=== PATIENT | female | born 1990 | race African-American/Black ===

== ENCOUNTER 2018-05-19 08:31 | Emergency (ER) | payer SELFPAY ==
--- NOTE | 2018-05-19 09:38 | ER Document Report ---
HPI - HPI Time Seen by Provider: 05/19/18 09:26 Pain Level: 1 Notes: Patient is a 27-year-old female with no significant past medical history presents the emergency department complaining of urinary burning, urgency, and frequency over the last couple days. Patient states that she has had a UTI in the past. She is still eating and drinking without difficulty. She is having normal bowel movements. Her last menstrual cycle was about 1 week ago. She has not had any other vaginal discharge, odor, or bleeding. She has no other concerns or complaints. No concern of STD or STI. Denies any headache, fever, URI, sore throat, chest pain, palpitations, syncope, cough, shortness of breath, wheeze, dyspnea, abdominal pain, nausea/vomiting/diarrhea, or rash. - ROS Systems Reviewed and Negative: Yes All other systems reviewed and negative - CONSTITUTIONAL Constitutional: DENIES: Fever, Chills - EENT EENT: DENIES: Sore Throat, Ear Pain, Eye problems - NEURO Neurology: DENIES: Headache, Weakness, Vision blurred, Dizzinesss / Vertigo - CARDIOVASCULAR Cardiovascular: DENIES: Chest pain - RESPIRATORY Respiratory: DENIES: Trouble Breathing, Coughing - GASTROINTESTINAL Gastrointestinal: DENIES: Abdominal Pain, Black / Bloody Stools - URINARY Urinary: REPORTS: Dysuria. DENIES: Urgency, Frequency - REPRODUCTIVE Reproductive: DENIES: : - MUSCULOSKELETAL Musculoskeletal: DENIES: Extremity pain Past Medical History - Social History Smoking Status: Current Every Day Smoker Chew tobacco use (# tins/day): No Frequency of alcohol use: None Drug Abuse: None Family History: Reviewed & Not Pertinent Patient has suicidal ideation: No Patient has homicidal ideation: No Renal/ Medical History: Denies: Hx Peritoneal Dialysis Vertical Provider Document - CONSTITUTIONAL Agree With Documented VS: Yes Notes: PHYSICAL EXAMINATION: GENERAL: Well-appearing, well-nourished and in no acute distress. LUNGS: Breath sounds clear to auscultation bilaterally and equal. No wheezes rales or rhonchi. HEART: Regular rate and rhythm without murmurs, rubs, gallops. ABDOMEN: Soft, nontender, nondistended abdomen. No guarding, no rebound. No masses appreciated. Normal bowel sounds present. No CVA tenderness bilaterally. Musculoskeletal: FROM to passive/active. Strength 5+/5. Extremities: No cyanosis, clubbing, or edema b/l. Peripheral pulses 2+. Capillary refill less than 3 seconds. NEUROLOGICAL: Normal speech, normal gait. PSYCH: Normal mood, normal affect. SKIN: Warm, Dry, normal turgor, no rashes or lesions noted. - INFECTION CONTROL TRAVEL OUTSIDE OF THE [place] IN LAST 30 DAYS: No Course - Re-evaluation Re-evalutation: 05/19/18 10:37 Patient is an afebrile, well-hydrated, 27-year-old female who presents emergency department with dysuria and possible UTI. Vitals are acceptable without significant tachycardia, tachypnea, or hypoxia. PE is otherwise unremarkable. Her abdomen is soft and nontender. Urinalysis does have some contaminant, but patient is symptomatic so we will begin treatment. Urine culture is pending. No other labs or imaging warranted. She is nontoxic-appearing and is tolerating p.o. without difficulty. Low suspicion for any sepsis, meningitis, severe dehydration, respiratory compromise, acute abdomen, or other systemic emergent condition at this time. Patient is aware that condition can change from initial presentation and she needs to monitor symptoms closely and seek medical attention with any acute changes. I will send her home with a prescription for Keflex. Conservative measures otherwise. Recheck with your PCM this week. Return to the ED if needed otherwise as reviewed. Patient is in agreement. Discharge - Discharge Clinical Impression: Acute UTI (urinary tract infection), Dysuria Condition: Stable Disposition: HOME, SELF-CARE Instructions: Cephalexin ([facility]), Urinary Tract Infection ([facility]) Additional Instructions: Push fluids (i.e. water, cranberry juice) Proper hygenic technique Keep the skin clean Tylenol/ibuprofen as needed May use over the counter AZO for burning with urination x2-3 days Take medications as directed F/u with your PCM in 3-5 days for a recheck Consider consult with a Urologist for ongoing/worsening symptoms. Return to the ED with any worsening symptoms and/or development of fever, headache, chest pain, palpitations, syncope, shortness of breath, trouble breathing, abdominal pain, n/v/d, blood in stool/urine, loss of control of bowel/bladder, urinary retention, or other worsening symptoms that are concerning to you. Prescriptions: Cephalexin Monohydrate [Keflex 500 mg Capsule] 500 mg PO TID #21 capsule Forms: Elevated Blood Pressure Referrals: [facility] [Provider Group] - Follow up as needed
[2018-05-19 10:30] LABS: APPEARANCE,URINE SLIGHTLY-CLOUDY; BILIRUBIN,URINE NEGATIVE (NEGATIVE); COLOR,URINE YELLOW; GLUCOSE, URINE NEGATIVE (NEGATIVE); KETONES,URINE 20 mg/dL (NEGATIVE); LEUKOCYTE ESTERASE,URINE LARGE (NEGATIVE); NITRITE,URINE NEGATIVE (NEGATIVE); PROTEIN,URINE NEGATIVE (NEGATIVE); URINE SPECIFIC GRAVITY 1.017; UROBILINOGEN,URINE NEGATIVE mg/dL (<2.0)
[2018-05-19 10:39] VITALS: BP 129/83
== END 2018-05-19 10:49 | disposition home or self-care (01) ==
LOC: ER 08:31
DX: N39.0 Urinary tract infection, site not specified (principal); R30.0 Dysuria; R30.9 Painful micturition, unspecified; R39.15 Urgency of urination; R35.0 Frequency of micturition; F17.200 Nicotine dependence, unspecified, uncomplicated
CPT/HCPCS: 81001; 81025; 87086; 87088; 99283

== ENCOUNTER 2019-06-04 15:07 | Emergency (ER) | payer SELFPAY ==
--- NOTE | 2019-06-04 15:34 | ER Document Report ---
ED Medical Screen (RME) - General Chief Complaint: Abdominal Pain Stated Complaint: LOWER ABDOMINAL PAIN Time Seen by Provider: 06/04/19 15:30 TRAVEL OUTSIDE OF THE [place] IN LAST 30 DAYS: No - HPI Notes: 06/04/19 15:33 Patient is a 28-year-old female with history of tubal ligation who presents complaining of lower pelvic pain that is been present since yesterday that is been intermittent and feels like cramping. She has not had any vaginal discharge, odor, or bleeding. No dysuria or trouble with her bowels. No fever, chest pain, nausea/vomiting. I have treated and performed a rapid initial assessment of this patient. A comprehensive ED assessment and evaluation of the patient, analysis of test results and completion of medical decision making process will be conducted by additional ED providers. PHYSICAL EXAMINATION: GENERAL: Well-appearing, well-nourished and in no acute distress. A&Ox4. Answers questions appropriately. Abdomen: Limited exam in triage, there is tenderness to her lower pelvic area. - Related Data Allergies/Adverse Reactions: No Known Allergies Allergy (Unverified 05/19/18 08:33) Past Medical History Renal/ Medical History: Denies: Hx Peritoneal Dialysis Physical Exam - Vital signs Vitals: Temp Pulse Resp BP Pulse Ox 98.7 F 78 20 130/75 H 98 06/04/19 15:06/04/19 15:25 06/04/19 15:25 06/04/19 15:25 06/04/19 15:25 Course - Vital Signs Vital signs: Temp Pulse Resp BP Pulse Ox 98.7 F 78 20 130/75 H 98 06/04/19 15:06/04/19 15:25 06/04/19 15:25 06/04/19 15:25 06/04/19 15:25
[2019-06-04 16:12] LABS: APPEARANCE,URINE CLEAR; BILIRUBIN,URINE NEGATIVE (NEGATIVE); COLOR,URINE YELLOW; GLUCOSE, URINE NEGATIVE (NEGATIVE); KETONES,URINE NEGATIVE (NEGATIVE); PROTEIN,URINE NEGATIVE (NEGATIVE); URINE SPECIFIC GRAVITY 1.014; UROBILINOGEN,URINE NEGATIVE mg/dL (<2.0)
[2019-06-04 16:40] LABS: ABSOLUTE LYMPHOCYTES (AUTO) 2.5 10^3/uL (0.5-4.7); ABSOLUTE MONOCYTES (AUTO) 0.5 10^3/uL (0.1-1.4); ABSOLUTE NEUT (AUTO) 5.5 10^3/uL (1.7-8.2); BASOPHILS % (AUTO) 0.3 % (0-2); EOSINOPHILS % (AUTO) 0.5 % (0-6); HEMATOCRIT 35.8 % (36.0-47.0); HEMOGLOBIN 12.3 g/dL (12.0-15.5); LYMPHOCYTES % (AUTO) 29.4 % (13-45); MEAN CORPUSCULAR HEMOGLOBIN 26.8 pg (27.0-33.4); MEAN CORPUSCULAR HGB CONC 34.4 g/dL (32.0-36.0); MEAN CORPUSCULAR VOLUME 78 fl (80-97); MONOCYTES % (AUTO) 6.1 % (3-13); PLATELET COUNT 249 10^3/uL (150-450); RED BLOOD COUNT 4.59 10^6/uL (3.72-5.28); RED CELL DISTRIBUTION WIDTH 16.4 % (11.5-14.0); SEGMENTED NEUTROPHILS % (AUTO) 63.7 % (42-78); TOTAL CELLS COUNTED % (AUTO) 100 %; WHITE BLOOD COUNT 8.6 10^3/uL (4.0-10.5)
[2019-06-04 16:48] LABS: ALBUMIN 4.4 g/dL (3.5-5.0); ALKALINE PHOSPHATASE 56 U/L (38-126); ANION GAP 6 (5-19); ASPARTATE AMINO TRANSFERASE 18 U/L (14-36); BILIRUBIN,TOTAL 0.5 mg/dL (0.2-1.3); BLOOD UREA NITROGEN 15 mg/dL (7-20); CALCIUM 9.8 mg/dL (8.4-10.2); CARBON DIOXIDE 26 mmol/L (22-30); CHLORIDE 108 mmol/L (98-107); GLUCOSE 93 mg/dL (75-110); TOTAL PROTEIN 7.5 g/dL (6.3-8.2)
--- NOTE | 2019-06-04 17:08 | RADIOLOGY REPORT (SQ) ---
EXAM DESCRIPTION: U/S NON OB PEL TV W/DOPPLER COMPLETED DATE/TIME: 06/04/2019 4:41 pm REASON FOR STUDY: pelvic pain COMPARISON: None. TECHNIQUE: Dynamic and static grayscale images acquired of the pelvis via transvaginal approach and recorded on PACS. Additional selected color Doppler and spectral images recorded. LIMITATIONS: None. FINDINGS: UTERUS: The uterus is oriented retroverted and it measures 8.3 x 6 x 7.2 cm. The echotext ure of the myometrium is homogeneous. ENDOMETRIAL STRIPE: The endometrium measures 17 mm in thickness. CERVIX: The cervix measures 2.8 cm in length. RIGHT OVARY AND DOPPLER: The right ovary measures 3.3 x 2.2 x 2.2 cm and on Doppler there is intact a rterial inflow and venous outflow within the ovarian stroma. There is no adnexal mass. LEFT OVARY AND DOPPLER: The left ovary measures 3.1 x 2.6 x 2.9 cm and on Doppler there is intact art erial inflow and venous outflow within the ovarian stroma. There is no adnexal mass. FREE FLUID: Trace amount of free fluid in the cul de sac. OTHER: No other finding. IMPRESSION: 1. Normal appearance of the uterus, endometrium and ovaries. There is no adnexal mass o r evidence for ovarian torsion. 2. Trace amount of free fluid in the pelvis. TECHNICAL DOCUMENTATION: JOB ID: [id number] 2010 [employer]- All Rights Reserved Rev-08/23 Reading location - IP/workstation name: [email or web address]
[2019-06-04] MEDS ORDERED: FLUCONAZOLE 100 MG TABLET PO ONE (18:56)
--- NOTE | 2019-06-04 19:01 | ER Document Report ---
ED General - General Chief Complaint: Lower Abdominal Pain Stated Complaint: LOWER ABDOMINAL PAIN Time Seen by Provider: 06/04/19 15:30 Mode of Arrival: Ambulatory Information source: Patient Notes: 28-year-old female presents emergency department with complaints of lower abdominal pain vaginal discharge since yesterday. She reports she usually has white vaginal discharge prior to her her menses but this discharge is heavier. Denies odor. Denies pain with void. Denies fever vomiting diarrhea. Reports she is not sexually active. She is not worried about an STD. She reports she is eating drinking voiding bowel movement is normal. TRAVEL OUTSIDE OF THE [place] IN LAST 30 DAYS: No - HPI Onset: Yesterday Onset/Duration: Sudden Quality of pain: Achy Associated symptoms: None Exacerbated by: Denies Relieved by: Denies Similar symptoms previously: No Recently seen / treated by doctor: No - Related Data Allergies/Adverse Reactions: No Known Allergies Allergy (Unverified 05/19/18 08:33) Past Medical History - General Information source: Patient Last Menstrual Period: Last month. 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 Lives with: Family Family History: Reviewed & Not Pertinent Patient has suicidal ideation: No Patient has homicidal ideation: No - Medical History Medical History: Negative Renal/ Medical History: Denies: Hx Peritoneal Dialysis Past Surgical History: Reports: Hx Tubal Ligation Review of Systems - Review of Systems Notes: Review HPI for review of systems., All other systems negative Physical Exam - Vital signs Vitals: Temp Pulse Resp BP Pulse Ox 98.7 F 78 20 130/75 H 98 06/04/19 15:25 06/04/19 15:25 06/04/19 15:25 06/04/19 15:25 06/04/19 15:25 - Notes Notes: PHYSICAL EXAMINATION: GENERAL: Well-appearing and in no acute distress HEAD: Atraumatic, normocephalic. EYES: Pupils equal round extraocular movements intact, sclera anicteric, conjunctiva are normal. ENT: nares patent,. Moist mucous membranes. NECK: Normal range of motion, supple without lymphadenopathy LUNGS: CTAB and equal. No wheezes rales or rhonchi. HEART: Regular rate and rhythm without murmurs ABDOMEN: Soft, no tenderness. No guarding, no rebound Back: Denies pain EXTREMITIES: Normal range of motion, no pitting edema. No cyanosis. NEUROLOGICAL: Cranial nerves grossly intact. Normal sensory/motor exams. PSYCH: Normal mood, normal affect. SKIN: Warm, Dry, normal turgor, no rashes or lesions noted Course - Re-evaluation Re-evalutation: 06/04/19 19:49 Patient presents with complaints of large amount of vaginal discharge. Reports itchiness. She also reports she is not sexually active not worried about STD patch. Pelvic was done vaginal culture for BV wet mount and STD cultures were obtained. Patient would like to be treated for the yeast infection and contacted should anything come back positive. She was provided with the culture nurse number and my number that I will be sitting at tomorrow. She was treated with Diflucan today. She verbalized understanding to all instructions. Transvaginal US 06/04/19 15:32 IMPRESSION: 1. Normal appearance of the uterus, endometrium and ovaries. There is no adnexal mass or evidence for ovarian torsion. 2. Trace amount of free fluid in the pelvis. Laboratory 06/04/19 06/04/19 06/04/19 15:40 15:40 15:40 WBC 8.6 RBC 4.59 Hgb 12.3 Hct 35.8 L MCV 78 L MCH 26.8 L MCHC 34.4 RDW 16.4 H Plt Count 249 Lymph % (Auto) 29.4 [place] % (Auto) 6.1 Eos % (Auto) 0.5 Baso % (Auto) 0.3 Absolute Neuts (auto) 5.5 Absolute Lymphs (auto) 2.5 Absolute Monos (auto) 0.5 Absolute Eos (auto) 0.0 Absolute Basos (auto) 0.0 Seg Neutrophils % 63.7 Sodium 140.2 Potassium 4.0 Chloride 108 H Carbon Dioxide 26 Anion Gap 6 BUN 15 Creatinine 0.89 Est GFR ( Amer) > 60 Est GFR (MDRD) Non-Af > 60 Glucose 93 Calcium 9.8 Total Bilirubin 0.5 Direct Bilirubin 0.0 Neonat Total Bilirubin Not Reportable Neonat Direct Bilirubin Not Reportable Neonat Indirect Bili Not Reportable AST 18 ALT 8 Alkaline Phosphatase 56 Total Protein 7.5 Albumin 4.4 Lipase 62.0 Serum HCG, Qual Urine Color YELLOW Urine Appearance CLEAR Urine pH 6.0 Ur Specific [place] 1.014 Urine Protein NEGATIVE Urine Glucose (UA) NEGATIVE Urine Ketones NEGATIVE Urine Blood NEGATIVE Urine Nitrite (Reflex) NEGATIVE Urine Bilirubin NEGATIVE Urine Urobilinogen NEGATIVE Leukocyte Esterase Rfl TRACE H Urine RBC (Auto) 1 Urine WBC (Reflex) 2 Squamous Epi Cells Auto 1 Urine Mucus (Auto) RARE Urine Ascorbic Acid NEGATIVE Bacteria (Wet Prep) Trichomonas (Wet Prep) Vaginal WBC Vaginal Yeast 06/04/19 06/04/19 15:40 19:16 WBC RBC Hgb Hct MCV MCH MCHC RDW Plt Count Lymph % (Auto) [place] % (Auto) Eos % (Auto) Baso % (Auto) Absolute Neuts (auto) Absolute Lymphs (auto) Absolute Monos (auto) Absolute Eos (auto) Absolute Basos (auto) Seg Neutrophils % Sodium Potassium Chloride Carbon Dioxide Anion Gap BUN Creatinine Est GFR ( Amer) Est GFR (MDRD) Non-Af Glucose Calcium Total Bilirubin Direct Bilirubin Neonat Total Bilirubin Neonat Direct Bilirubin Neonat Indirect Bili AST ALT Alkaline Phosphatase Total Protein Albumin Lipase Serum HCG, Qual NEGATIVE Urine Color Urine Appearance Urine pH Ur Specific [place] Urine Protein Urine Glucose (UA) Urine Ketones Urine Blood Urine Nitrite (Reflex) Urine Bilirubin Urine Urobilinogen Leukocyte Esterase Rfl Urine RBC (Auto) Urine WBC (Reflex) Squamous Epi Cells Auto Urine Mucus (Auto) Urine Ascorbic Acid Bacteria (Wet Prep) 4+ BACTERIA SEEN Trichomonas (Wet Prep) NO TRICHOMONAS SEEN Vaginal WBC 2+ WBCS SEEN Vaginal Yeast BUDDING YEAST SEEN 06/05/19 19:17 Patient positive for chlamydia. She was contacted by the culture nurse and a prescription was called to her pharmacy. - Vital Signs Vital signs: Temp Pulse Resp BP Pulse Ox 97.8 F 72 17 134/92 H 99 06/04/19 19:34 06/04/19 19:34 06/04/19 19:34 06/04/19 19:34 06/04/19 19:34 - Laboratory Result Diagrams: 06/04/19 15:40 06/04/19 15:40 Laboratory results interpreted by me: 06/04/19 06/04/19 06/04/19 15:40 15:40 15:40 Hct 35.8 L MCV 78 L MCH 26.8 L RDW 16.4 H Chloride 108 H Leukocyte Esterase Rfl TRACE H Chlamydia DNA (PCR) 02/27/20 19:16 Hct MCV MCH RDW Chloride Leukocyte Esterase Rfl Chlamydia DNA (PCR) DETECTED H - Diagnostic Test Radiology reviewed: Reports reviewed Procedures - Pelvic Exam Pelvic exam Cultures obtained: Yes Wet prep obtained: Yes Herpes culture obtained: No POC sent to lab: No Foreign body removed: No Bimanual exam performed: Yes Witnessed by: Monica IRAHETA Discharge - Discharge Clinical Impression: Lower abdominal pain, Vaginal discharge Condition: Stable Disposition: HOME, SELF-CARE Instructions: Abdominal Pain ([facility]), Fluconazole ([facility]), [facility], Vaginal Yeast Infection ([facility]) Additional Instructions: *You have been evaluated for abdominal pain, vaginal discharge, yeast infection *You have been treated for vaginal yeast infection with Diflucan. *Your vaginal culture and STD cultures are pending. You may contact Pat tomorrow at [phone] for your results. Or you may contact the culture nurse Saturday through Saturday 8 AM to 4 PM at [phone] *Follow up with a primary care provider or the health department within 1 week for recheck *Return to ED for worsening condition, changes, needs Monitor your blood pressure. Your blood pressure was elevated today. This may be because you were anxious, in pain or because you need medication. It is important to follow up with your primary care provider for full evaluation. Prescriptions: Fluconazole [Diflucan 100 Mg Tablet] 150 mg PO DAILY #1 tablet Forms: Elevated Blood Pressure
[2019-06-04 19:35] VITALS: BP 134/92
[2019-06-04 19:47] LABS: BACTERIA (WET MOUNT) 4+ BACTERIA SEEN; T.VAGINALIS (WET MOUNT) NO TRICHOMONAS SEEN; WBCS (WET MOUNT) 2+ WBCS SEEN; YEAST (WET MOUNT) BUDDING YEAST SEEN
[2019-06-04 21:04] LABS: CHLAM PCR DETECTED (NOT DETECT)
== END 2019-06-04 19:42 | disposition home or self-care (01) ==
LOC: ER 15:07
DX: R10.2 Pelvic and perineal pain (principal); N89.8 Other specified noninflammatory disorders of vagina; A74.9 Chlamydial infection, unspecified; B37.9 Candidiasis, unspecified
CPT/HCPCS: 36415; 76830; 80053; 81001; 83690; 84703; 85025; 87070; 87077; 87086; 87205; 87210; 87491; 87591; 93976; 99284

== ENCOUNTER 2019-09-03 23:50 | Emergency (ER) | payer SELFPAY ==
[2019-09-04 01:26] VITALS: BP 129/85
== END 2019-09-04 01:25 | disposition left against medical advice (07) ==
LOC: ER 23:50
DX: Z53.21 Procedure and treatment not carried out due to patient leaving prior to being seen by health care provider (principal)

== ENCOUNTER 2019-09-18 20:22 | Emergency (ER) | payer SELFPAY ==
--- NOTE | 2019-09-18 22:27 | ER Document Report ---
ED General - General Chief Complaint: Lower Abdominal Pain Stated Complaint: ABDOMINAL PAIN Time Seen by Provider: 09/18/19 21:34 TRAVEL OUTSIDE OF THE [place] IN LAST 30 DAYS: No - HPI Notes: Chief complaint: Vaginal discharge History of present illness: 28-year-old female 5 para 4 AB 1 status post tubal ligation with last menses 2 weeks ago was previously seen here June 04 with complaint of vaginal discharge and tested positive for chlamydia then with negative studies for GC and a negative wet mount. She says she was given antibiotic treatment and completed this but notes that her vaginal discharge never went away. I have reviewed records she was treated only with fluconazole at that time and did not get any treatment for chlamydia. Currently she denies pain. She denies fever or chills. She denies dysuria. She denies nausea vomiting. - Related Data Allergies/Adverse Reactions: No Known Allergies Allergy (Unverified 05/19/18 08:33) Past Medical History - General Information source: Patient, [facility] Records - Social History Smoking Status: Current Some Day Smoker Chew tobacco use (# tins/day): No Frequency of alcohol use: None Drug Abuse: None Family History: Reviewed & Not Pertinent Patient has homicidal ideation: No Renal/ Medical History: Denies: Hx Peritoneal Dialysis Past Surgical History: Reports: Hx Tubal Ligation Review of Systems - Review of Systems Notes: Constitutional: Negative for fever. HENT: Negative for sore throat. Eyes: Negative for visual changes. Cardiovascular: Negative for chest pain. Respiratory: Negative for shortness of breath. Gastrointestinal: Negative for abdominal pain, vomiting or diarrhea. Genitourinary: As per HPI. Musculoskeletal: Negative for back pain. Skin: Negative for rash. Neurological: Negative for headaches, weakness or numbness. 10 point ROS negative except as marked above and in HPI. Physical Exam - Vital signs Vitals: Temp Pulse Resp BP Pulse Ox 98.4 F 90 16 134/72 H 99 09/18/19 20:34 09/18/19 20:34 09/18/19 20:34 09/18/19 20:34 09/18/19 20:34 - Notes Notes: GENERAL: Female patient of approximately stated age appearing in no acute distress. SKIN: Good turgor no rashes. HEAD: Normocephalic atraumatic. EYES: PERRLA. EOMI. Conjunctivae and sclerae clear. NECK: Supple. No masses or thyromegaly. No adenopathy. Carotids 2+ without bruits. No JVD. BACK: Symmetrical without tenderness. CHEST: Respirations unlabored. Breath sounds clear and symmetrical. HEART: Regular rhythm. No murmur gallop or rub. ABDOMEN: Soft nontender without masses, organomegaly or rebound. Bowel sounds normally active. No bruits. Pelvic: Normal external genitalia and hair distribution. Scant white vaginal discharge present. This is thin and watery. Cervix is parous without lesions. Bimanual exam shows no uterine enlargement or adnexal masses. There is no tenderness on bimanual exam and no cervical motion tenderness. EXTREMITIES: No edema. No calf tenderness. Cap refill less than 1.5 seconds. Dorsalis pedis and posterior tibial pulses 3+ and symmetrical. NEUROLOGICAL: Alert and oriented x3. Nonfocal. PSYCHIATRIC: Appropriate affect. Course - Re-evaluation Re-evalutation: 09/18/19 23:38 This is basically a lady who already had documented chlamydia in May but never received adequate treatment. I am going to treat her with a 14-day course of doxycycline and I have resubmitted a DNA probe. She is to follow-up with the health department or [facility]. - Vital Signs Vital signs: Temp Pulse Resp BP Pulse Ox 98.4 F 90 16 134/72 H 99 09/18/19 21:34 09/18/19 20:34 09/18/19 20:34 09/18/19 20:34 09/18/19 20:34 - Laboratory Laboratory results interpreted by me: 09/18/19 22:03 Urine Urobilinogen 2.0 H Ur Leukocyte Esterase SMALL H Discharge - Discharge Clinical Impression: Chlamydial cervicitis Condition: Stable Disposition: HOME, SELF-CARE Additional Instructions: Chlamydia You have a chlamydia infection. Chlamydia is a germ that grows inside the cells of the mucous membranes. It often infects the eyes, urethra, and fallopian tubes. It can cause chronic pain and scar tissue if untreated. Antibiotics are used to treat chlamydia. It's important to take all the medicine even if there are no symptoms. Use condoms to prevent spread of the infection. Because this infection can spread by sexual contact, it's important that your sexual partner be checked before resuming sexual relations. A positive test for chlamydia has to be reported to the health department. Call the doctor or return at once if you develop increasing fever, rash, severe pelvic pain, vaginal bleeding (other than your period), or problems with your bladder or bowels. Take prescribed medication as instructed. Recommend that your partner be evaluated for possible chlamydial infection. Follow-up with health department clinic or [facility] Prescriptions: Doxycycline Monohydrate 100 mg PO BID 14 Days #28 capsule Referrals: [facility] [Provider Group] - Follow up as needed
[2019-09-18 22:41] LABS: APPEARANCE,URINE SLIGHTLY-CLOUDY; BILIRUBIN,URINE NEGATIVE (NEGATIVE); COLOR,URINE YELLOW; GLUCOSE, URINE NEGATIVE (NEGATIVE); KETONES,URINE NEGATIVE (NEGATIVE); LEUKOCYTE ESTERASE,URINE SMALL (NEGATIVE); NITRITE,URINE NEGATIVE (NEGATIVE); PROTEIN,URINE NEGATIVE (NEGATIVE); URINE SPECIFIC GRAVITY 1.016
[2019-09-18] MEDS ORDERED: DOXYCYCLINE HYCLATE 100 MG TABLET PO ONE (23:31)
[2019-09-18] MEDS ORDERED: METRONIDAZOLE 500 MG TABLET PO ONE (23:31)
[2019-09-18 23:42] LABS: RBCS (WET MOUNT) FEW RBCS SEEN; T.VAGINALIS (WET MOUNT) NO TRICHOMONAS SEEN; WBCS (WET MOUNT) FEW WBCS SEEN; YEAST (WET MOUNT) NO YEAST SEEN
[2019-09-18 23:48] VITALS: BP 128/90
[2019-09-18 23:56] LABS: CHLAM PCR NOT DETECTED (NOT DETECT)
== END 2019-09-18 23:58 | disposition home or self-care (01) ==
LOC: ER 20:22
DX: A56.09 Other chlamydial infection of lower genitourinary tract (principal); R10.30 Lower abdominal pain, unspecified; F17.200 Nicotine dependence, unspecified, uncomplicated; Z98.51 Tubal ligation status
CPT/HCPCS: 81001; 87210; 87491; 87591; 99284

== ENCOUNTER 2019-09-29 13:01 | Emergency (ER) | payer SELFPAY ==
[2019-09-29] MEDS ORDERED: RINGERS SOLUTION,LACTATED 1,000 ML IV ONE (14:15)
[2019-09-29] MEDS ORDERED: METOCLOPRAMIDE HCL INJ/PF 10 MG/2 ML SDV IV ONE (14:15)
--- NOTE | 2019-09-29 14:16 | ER Document Report ---
ED Flu Like - General Chief Complaint: Cold Symptoms Stated Complaint: FLU SYMPTOMS Time Seen by Provider: 09/29/19 13:44 Primary Care Provider: ANH IRBY MD [ACTIVE STAFF] - Follow up in 3-5 days (Call for an appointment if not improving in 2 to 3 days.) Mode of Arrival: Ambulatory Information source: Patient Notes: 28-year-old female with no previous medical problems presents emergency room complaining of chills, nausea, vomiting for the past 3 days. Denies any abdominal pain. No diarrhea. Patient did recently travel to [facility] 2 days ago. Denies any COVID-19 exposure. Denies any ill contacts. Denies any bad food. Has not been taking any medications for her symptoms. TRAVEL OUTSIDE OF THE [place] IN LAST 30 DAYS: No - Related Data Allergies/Adverse Reactions: No Known Allergies Allergy (Unverified 05/19/18 08:33) Past Medical History - General Information source: Patient - Social History Smoking Status: Never Smoker Frequency of alcohol use: None Drug Abuse: None Family History: Reviewed & Not Pertinent Patient has homicidal ideation: No Renal/ Medical History: Denies: Hx Peritoneal Dialysis Past Surgical History: Reports: Hx Tubal Ligation Review of Systems - Review of Systems Constitutional: Chills, Malaise EENT: No symptoms reported Cardiovascular: No symptoms reported Respiratory: No symptoms reported Gastrointestinal: Nausea, Vomiting. denies: Abdominal pain, Diarrhea Genitourinary: No symptoms reported Musculoskeletal: Muscle pain Skin: No symptoms reported -: Yes All other systems reviewed and negative Physical Exam - Vital signs Vitals: Temp Pulse Resp BP Pulse Ox 98.5 F 80 18 117/63 98 09/29/19 13:22 09/29/19 13:22 09/29/19 13:22 09/29/19 13:22 09/29/19 13:22 - Notes Notes: VITAL SIGNS: Within normal limits. GENERAL: Mild acute distress, non-toxic appearance. HEAD: Normal with no signs of head trauma. EYES: PERRLA, EOMI, conjunctiva normal, no discharge. EARS: Hearing grossly intact. NOSE: Normal. THROAT: Oropharynx is normal. NECK: Normal range of motion, no tenderness, supple, no lymphadenopathy, No adenopathy, no JVD. CHEST: Clear breath sounds bilaterally. No wheezes, rales, or rhonchi. CARDIAC: Regular rate and rhythm. S1 and S2, without murmurs, gallops, or rubs. VASCULAR: No Edema. Peripheral pulses normal and equal in all extremities. ABDOMEN: Normal and soft with no tenderness, no masses or pulsatile masses. GASTROINTESTINAL: Bowel sounds normal GENITOURINARY: Normal, No tenderness LYMPATHTIC: No lymphadenopathy noted. MUSCULOSKELETAL: Good range of motion of all major joints. Extremities without clubbing, cyanosis or edema. NEUROLOGICAL: Alert and oriented x 3. No focal sensory or strength deficits. Speech normal. Follows commands appropriately. PSYCHIATRIC: Normal Affect, judgement and mood. SKIN: Normal appearance with no rashes or lesions. Course - Re-evaluation Re-evalutation: 09/29/19 17:24 Patient is resting comfortably states she is feeling better. Patient would like to be tested for COVID as she recently traveled to [place]. Aware that she will have to self quarantine for the next 14 days until she gets a negative test result back. Will attempt p.o. challenge and discharge patient home. 09/29/19 18:15 Patient remains afebrile, nontoxic-appearing, able to tolerate p.o. fluids. Aware she will be notified and 6 to 8 days of her COVID 19 results. She was counseled on need to self quarantine until she gets her test results back. Take Zofran as needed. Patient was given strict return to the emergency room guidelines. Return for any new or worsening symptoms. All questions were answered. Patient verbalized understanding and agrees with plan of care. - Vital Signs Vital signs: Temp Pulse Resp BP Pulse Ox 98.6 F 72 15 115/72 99 09/29/19 18:34 09/29/19 18:34 09/29/19 18:34 09/29/19 18:34 09/29/19 18:34 - Laboratory Result Diagrams: 09/29/19 14:50 09/29/19 14:50 Laboratory results interpreted by me: 09/29/19 09/29/19 09/29/19 14:50 14:50 15:30 MCV 78 L MCH 26.2 L RDW 15.6 H Chloride 109 H Ur Leukocyte Esterase TRACE H Discharge - Discharge Clinical Impression: Nausea and vomiting Qualifiers: Vomiting type: unspecified Vomiting Intractability: non-intractable Qualified Code(s): R11.2 - Nausea with vomiting, unspecified Condition: Stable Disposition: HOME, SELF-CARE Instructions: COVID-19 Guidance for Persons Under Investigation, Antinausea Medication ([facility]), Vomiting ([facility]) Additional Instructions: You have been seen in the Emergency Department (ED) today for nausea and vomiting. Your work up today has not shown a clear cause for your symptoms. You have been prescribed Zofran; please use as prescribed as needed for your nausea. Follow up with your doctor as soon as possible regarding today's emergent visit and your symptoms of nausea. You will be notified within 6 to 8 days of your COVID-19 results. You need to self quarantine for the next 14 days or until you receive a negative test result. Return to the Emergency Department (ED) if you develop abdominal pain, bloody vomiting, bloody diarrhea, if you are unable to tolerate fluids due to vomiting, or if you develop other symptoms that concern you. Prescriptions: Ondansetron [Zofran Odt 4 mg Tablet] 1 tab PO Q4H PRN #15 tab.rapdis PRN Reason: For Nausea/Vomiting Forms: Return to Work Referrals: ANH IRBY MD [ACTIVE STAFF] - Follow up in 3-5 days (Call for an appointment if not improving in 2 to 3 days.)
[2019-09-29 15:09] LABS: ABSOLUTE LYMPHOCYTES (AUTO) 1.9 10^3/uL (0.5-4.7); ABSOLUTE MONOCYTES (AUTO) 0.4 10^3/uL (0.1-1.4); ABSOLUTE NEUT (AUTO) 5.1 10^3/uL (1.7-8.2); BASOPHILS % (AUTO) 0.3 % (0-2); EOSINOPHILS % (AUTO) 0.6 % (0-6); HEMATOCRIT 36.3 % (36.0-47.0); HEMOGLOBIN 12.2 g/dL (12.0-15.5); LYMPHOCYTES % (AUTO) 25.2 % (13-45); MEAN CORPUSCULAR HEMOGLOBIN 26.2 pg (27.0-33.4); MEAN CORPUSCULAR HGB CONC 33.7 g/dL (32.0-36.0); MEAN CORPUSCULAR VOLUME 78 fl (80-97); PLATELET COUNT 256 10^3/uL (150-450); RED BLOOD COUNT 4.66 10^6/uL (3.72-5.28); RED CELL DISTRIBUTION WIDTH 15.6 % (11.5-14.0); SEGMENTED NEUTROPHILS % (AUTO) 67.9 % (42-78); TOTAL CELLS COUNTED % (AUTO) 100 %; WHITE BLOOD COUNT 7.5 10^3/uL (4.0-10.5)
[2019-09-29 15:28] LABS: A TYPE INFLUENZA AG NEGATIVE (NEGATIVE); B INFLUENZA AG NEGATIVE (NEGATIVE)
[2019-09-29 15:29] LABS: ALBUMIN 3.9 g/dL (3.5-5.0); ALKALINE PHOSPHATASE 58 U/L (38-126); ANION GAP 6 (5-19); ASPARTATE AMINO TRANSFERASE 19 U/L (14-36); BILIRUBIN,TOTAL 0.5 mg/dL (0.2-1.3); BLOOD UREA NITROGEN 18 mg/dL (7-20); CARBON DIOXIDE 25 mmol/L (22-30); CHLORIDE 109 mmol/L (98-107); GLUCOSE 90 mg/dL (75-110); POTASSIUM 3.9 mmol/L (3.6-5.0); TOTAL PROTEIN 7.5 g/dL (6.3-8.2)
[2019-09-29 15:50] LABS: APPEARANCE,URINE CLEAR; BILIRUBIN,URINE NEGATIVE (NEGATIVE); COLOR,URINE YELLOW; GLUCOSE, URINE NEGATIVE (NEGATIVE); KETONES,URINE NEGATIVE (NEGATIVE); LEUKOCYTE ESTERASE,URINE TRACE (NEGATIVE); NITRITE,URINE NEGATIVE (NEGATIVE); PROTEIN,URINE NEGATIVE (NEGATIVE); URINE SPECIFIC GRAVITY 1.014; UROBILINOGEN,URINE NEGATIVE mg/dL (<2.0)
[2019-09-29 18:34] VITALS: BP 115/72
== END 2019-09-29 18:37 | disposition home or self-care (01) ==
LOC: ER 13:01
DX: R11.2 Nausea with vomiting, unspecified (principal); R53.81 Other malaise; Z20.828 Contact with and (suspected) exposure to other viral communicable diseases
CPT/HCPCS: 99283; 96361; 96374; 36415; 87070; 87880; 84703; 85025; 87635; 80053; 81001; 87804; J2765; J7120; C9803